=== PATIENT | male | born 1960 | race Caucasian/White ===

== ENCOUNTER 2016-10-18 11:46 | Day surgery (SDC) | payer OTHER ==
[2016-10-17 14:46] VITALS: BMI 29.1
[2016-10-18 12:26] VITALS: RESP 18
[2016-10-18 15:44] VITALS: BP 134/79; PULSE 72; TEMP 97; O2SAT 100
--- NOTE | 2016-10-19 09:17 | OP ---
PROCEDURE DATE: 10/18/2016 IMPLANTATION OF A LOOP RECORDER INDICATIONS: Syncope. Negative tilt table test. The patient was prepped and draped in the usual fashion for the procedure. IV antibiotics were given . The local sedation was applied to the skin, and successful implantation subcutaneously of a loop r ecorder. The patient dressed sterilely and discharged to same-day area for followup in the office. Successful implantation of a loop recorder. Carmela King MD cc: [id number] TT: 10/19/2016 09:17:25 jn
--- NOTE | 2016-10-19 09:22 | OP ---
PROCEDURE DATE: 10/18/2016 PROCEDURE: Tilt table test. The patient was tilted for 45 minutes, head up tilt 75 degrees without any hypotension. Negative til t table test. Carmela King MD cc: [id number] TT: 10/19/2016 09:21:53 tn
== END 2016-10-18 15:48 | disposition home or self-care (01) ==
LOC: C.CATHLAB 11:46
PROVIDERS: ATTEND Specialist
DX: R55 Syncope and collapse (principal); I10 Essential (primary) hypertension; R42 Dizziness and giddiness
CPT/HCPCS: 82948; C1764

== ENCOUNTER 2017-04-23 14:02 | Emergency (ER) | payer OTHER ==
[2017-04-23 14:02] VITALS: BMI 29.1
[2017-04-23 14:11] VITALS: RESP 16; TEMP 98; O2SAT 98
--- NOTE | 2017-04-23 16:41 | CT ---
PROCEDURE: CT Cervical Spine without contrast HISTORY: <r/o fx - pain to C6/C7 area> COMPARISON: None available. TECHNIQUE: Axial computed tomography images were obtained of the cervical spine without the use of intravenous contrast. Coronal and sagittal reformatted images were created and reviewed. Radiation dose: Total exam DLP = 542.69 mGy-cm. This CT exam was performed using one or more of the following dose reduction techniques: Automated exposure control, adjustment of the mA and/or kV according to patient size, and/or use of iterative reconstruction technique. FINDINGS: VERTEBRAE: Vertebral bodies maintained in height. Normal vertebral alignment is maintained. Straightening of the normal lordotic curvature is noted, indicating possible muscular spasm. The atlantoaxial articulation and odontoid process are intact. DISCS/SPINAL CANAL/NEURAL FORAMINA: Narrowing of the C5-6 intervertebral disc space noted, with posterior disc/ ridge complex. There is mild central spinal stenosis at the C5-6 level. The remaining intervertebral discs are maintained in height. PARASPINAL SOFT TISSUES: Unremarkable. OTHER FINDINGS: None. IMPRESSION: No fracture/ dislocation. Possible muscular spasm. Degenerative disc disease at C5-6 with disc/ridge complex and mild central spinal stenosis.
[2017-04-23 17:07] VITALS: BP 139/85; PULSE 78
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
--- NOTE | 2017-04-24 15:34 | CARD ---
APPROVED REPORT EKG Measurement Heart [id number] <Conclusion> Normal sinus rhythm Normal ECG
== END 2017-04-23 17:06 | disposition home or self-care (01) ==
LOC: C.ER 14:02
DX: S13.9XXA Sprain of joints and ligaments of unspecified parts of neck, initial encounter (principal); V49.49XA Driver injured in collision with other motor vehicles in traffic accident, initial encounter; Y92.410 Unspecified street and highway as the place of occurrence of the external cause